=== PATIENT | female | born 1995 | race Caucasian/White ===

== ENCOUNTER → 2023-09-20 | Emergency (ER) | payer MEDICAID ==
[~2023-09-20] VITALS: Ht 162.6 cm; Wt 61.9 kg
[2023-09-20 01:36] VITALS: BP 137/89; PULSE 85; RESP 16; TEMP 97.9; O2SAT 98
== END | disposition home or self-care (01) ==
LOC: ER 01:36
DX: T19.2XXA Foreign body in vulva and vagina, initial encounter (principal); W45.8XXA Other foreign body or object entering through skin, initial encounter; Y93.89 Activity, other specified; Y92.89 Other specified places as the place of occurrence of the external cause; Y99.8 Other external cause status
CPT/HCPCS: 99284